=== PATIENT | female | born 2000 | race Two or more races ===

== ENCOUNTER 2020-07-18 12:03 | Emergency (ER) | payer OTHER ==
[~2020-07-18] VITALS: Ht 154.9 cm; Wt 70.0 kg
--- NOTE | 2020-07-18 12:23 | NUR ---
THIS IS A 19 YO F BIB EMS FROM HER SUPERVISORS OFFICE AT [facility] W/ C/O SI. PT REPORTS SIX1 MONTH BUT HAS BEEN TAKING PRECAUTIONS TO PREVENT SA. PT STATES SHE HAD A SA IN NOVEMBER 2019 IN WHICH SHE TOOK 15 TYLENOL. PT REPORTS REMOVING PILLS AND THINGS FROM HER ROOM FOR HER OWN SAFETY. PTS CURENT PLAN IS PILLS OR JUMPING OFF A BUILDING. PT STATES THAT SHE HAS THESE THOUGHTS BUT DOES NOT WANT TO ACT ON THEM AND IS HERE SEEKING HELP. PT DENIES TAKING ANY MEDS TODAY. NO HX OF HOME MEDS OR PREVIOUS DX. PT STATES THAT SHE HAS BEEM DRINKING MORE IN THE PAST WEEK, LAST DRINK LAST NIGHT. PT AMBULATED TO THE W/ A STEADY GAIT AND PROVIDED URINE SAMPLE. PT BELONGINGS REMOVED AND PLACED IN SAFETY LOCKER. SITTER OUTSIDE ROOM FOR SAFETY. PT RESTING ON GURNEY, RESP EVEN AND UNLABORED, NADN.
[2020-07-18 12:32] LABS: BASOPHILS # (AUTO) 0.03 x10^3/uL (0-0.3); BASOPHILS % (AUTO) 0 % (0-1); EOSINOPHILS # (AUTO) 0.17 x10^3/uL (0-0.8); EOSINOPHILS % (AUTO) 2 % (1-7); LYMPHOCYTES # (AUTO) 2.62 x10^3/uL (1-6.1); LYMPHOCYTES % (AUTO) 31 % (22-44); MD NO; MEAN CORPUSCULAR HEMOGLOBIN 30.8 pg (27.0-34.8); MEAN PLATELET VOLUME 8.4 fL (7.4-10.4); MONOCYTES # (AUTO) 0.54 x10^3/uL (0-1.4); MONOCYTES % (AUTO) 6 % (2-9); NEUTROPHILS # (AUTO) 5.22 x10^3/uL (1.8-8.0); NEUTROPHILS % (AUTO) 61 % (42-75); PLATELET COUNT 365 x10^3/uL (130-400); RED BLOOD COUNT 4.35 x10^6/uL (3.82-5.3); RED CELL DISTRIBUTION WIDTH 12.9 % (9.6-15.2)
[2020-07-18 12:41] LABS: ALBUMIN 3.9 g/dL (3.4-5.0); ANION GAP 5 mmol/L (5-15); CALCIUM 8.8 mg/dL (8.5-10.1); CHLORIDE 116 mmol/L (98-107)
[2020-07-18 12:42] LABS: AMPHETAMINE SCREEN, URINE Negative (Negative); BARBITURATE SCREEN, URINE Negative (Negative); BENZODIAZEPINE SCREEN, URINE Negative (Negative); CANNABINOID SCREEN, URINE Negative (Negative); COCAINE SCREEN, URINE Negative (Negative); METHADONE SCREEN, URINE Negative (Negative); OPIATE SCREEN, URINE Negative (Negative)
[2020-07-18 12:51] LABS: SALICYLATE LEVEL < 1.7 mg/dL (2.8-20.0)
--- NOTE | 2020-07-18 13:36 | NUR ---
Note kobi in EDM - 07/18/20 at 1356 by KAT THU SAMANIEGO NOTE: PT HAS PROVIDED UPDATED INSURANCE INFO, PT'S INSURANCE CARDS GIVEN TO REGISTRATION. PACKET TO REQUEST FOR TRANSFER TO PSYCH FACILITY WILL BE SENT TO LOCAL PSYCH FACILITIES WHEN INSURANCE UPDATED IN EMR.
--- NOTE | 2020-07-18 13:38 | NUR ---
PT PROVIDED W/ SAFETY DIET TRAY. PT RESTING ON [facility] W/ SITTER OUTSIDE ROOM AND GARAGE DOORS DOWNX2 FOR SAFETY. RESP EVEN AND UNLABORED, WILLIAM.
--- NOTE | 2020-07-18 13:56 | NUR ---
TP RN NOTE: PREVIOUS NOTE UNDONE, CHARTED ON WRONG PT.
--- NOTE | 2020-07-18 15:01 | NUR ---
TP RN NOTE: TRANSFER REQUEST PACKET SENT TO [facility], [facility], [facility], [facility] AND [facility]. CONFIRMATION OF RECEIPT RECEIVED.
--- NOTE | 2020-07-18 15:15 | NUR ---
PT ATTEMPTING TO CALL FAMILY MEMBER TO GET INSURANCE INFORMATION.
--- NOTE | 2020-07-18 15:17 | NUR ---
TP RN NOTE: PT STATES SHE HAS [employer] INSURANCE, DID NOT BRING CARDS TO ED. PT INSTRUCTED TO CALL FAMILY TO PROVIDE INSURANCE DETAILS OUR REGISTRATION IS UNABLE TO LOOK UP PT'S POLICY NUMBER AND DETAILS. [facility] HAS ACCEPTED PT ON SELF PAY BASIS, STATE ESTIMATED COST WILL BE $800 PER DAY. PT HAS SPOKEN TO HER FATHER WHO STATES HE DOES NOT HAVE A POLICY NUMBER BUT USES HIS NAME AND SOCIAL SECURITY NUMBER WHEN AT MEDICAL APPOINTMENTS. REGISTRATION STAFF NOTIFIED. PER REGISTRATION, THEY CAN ENTER THIS IN THE SYSTEM BUT INSURANCE CANNOT BE CONFIRMED UNTIL TOMORROW THIS CARRIER IS NOT OPEN ON WEEKENDS. PT NOTIFIED OF COST OF [facility], STATES SHE CANNOT PAY THIS AMOUNT AND WISHES TO STAY IN ED UNTIL LOWER COST OPTION IS FOUND, OR HER INSURANCE IS CONFIRMED. RECEIVING ROOM CLERK NOTIFIED.
[2020-07-18] MEDS ORDERED: TRAZODONE 50MG TABLET PO PRN (16:30)
[2020-07-18] MEDS ORDERED: HYDROXYZINE PAMOATE 50MG CAP PO PRN (16:30)
--- NOTE | 2020-07-18 16:57 | NUR ---
Pt denied by rebekah at this time.
--- NOTE | 2020-07-18 17:02 | NUR ---
REPORT RECIEVED FROM IVÁN SAMANIEGO. PT MOVED TO ROOM 1 WITHOUT INCIDENT. ROOM SECURE, SITTER IN HALLWAY
--- NOTE | 2020-07-18 17:10 | NUR ---
[facility] refused.
--- NOTE | 2020-07-18 19:17 | NUR ---
PT UP TO USE PHONE. AMBULATES WITH A STEADY GAIT. DINNER TRAY PROVIDED. ROOM SECURE AND SITTER IN HALLWAY
[2020-07-18] MEDS ORDERED: TRAZODONE 50MG TABLET ONE (19:58)
--- NOTE | 2020-07-18 20:19 | NUR ---
PT PLACED ON HOSPITAL BED.
--- NOTE | 2020-07-18 20:50 | NUR ---
Pt is only NNAMHS at this time until her insurance is verified on sunday.
--- NOTE | 2020-07-18 21:07 | NUR ---
SPOKE WITH MOTHER ON THE PHONE. JACOBO WAS INQUIRING ON IF AT ALL POSSIBLE TO RELEASE DAUGHTER TO HER TO TAKE BACK TO [facility] WHERE INSURANCE AND RESOURSES ARE MORE READILY AVAILABLE TO PT. MOTHER WAS ADVISED TO CALL BACK TOMORROW. THROUGHPUT MADE AWARE.
--- NOTE | 2020-07-19 00:39 | NUR ---
PT RESTING IN BED WITH PT ROOM SI SECURE, SITTER AT PT DOOR. PT DENIED ANY WANTS OR NEEDS. RN WILL CONTINUE TO MONITOR PT
--- NOTE | 2020-07-19 01:26 | NUR ---
PT RESTING IN BED WITH PT ROOM SI SECURE, SITTER AT PT DOOR. PT DENIED ANY WANTS OR NEEDS. RN WILL CONTINUE TO MONITOR PT
--- NOTE | 2020-07-19 04:25 | NUR ---
PT RESTING IN BED WITH PT ROOM SI SECURE, SITTER AT PT DOOR. PT DENIED ANY WANTS OR NEEDS. RN WILL CONTINUE TO MONITOR PT
--- NOTE | 2020-07-19 06:38 | NUR ---
PT RESTING IN BED WITH PT ROOM SI SECURE, SITTER AT PT DOOR. PT DENIED ANY WANTS OR NEEDS. RN WILL CONTINUE TO MONITOR PT
--- NOTE | 2020-07-19 07:09 | NUR ---
REPORT RECEIVED FROM JESUS MANUEL SAMANIEGO.
--- NOTE | 2020-07-19 07:16 | NUR ---
PT'S MOTHER'S NUMBER [phone]
--- NOTE | 2020-07-19 08:18 | NUR ---
DIET TRAY PROVIDED AT THIS TIME.
--- NOTE | 2020-07-19 09:00 | NUR ---
PT SLEEPING IN HOSPITAL BED. RESPS EVEN AND UNLABORED. SITTER MONITORING FROM HALLWAY FOR SAFETY. ROOM REMAINS SECURE.
[2020-07-19 10:13] VITALS: BP 99/62
--- NOTE | 2020-07-19 10:34 | NUR ---
pt resting in hospital bed. pt's aox4. resps even and unlabored. sitter monitoring from hallway for safety. room remains secure.
--- NOTE | 2020-07-19 10:49 | NUR ---
Yudy from [facility] accepts patient. Accepting doctor Dr. Carvalho. [facility] asks that patient can arrive there after 12:30.
--- NOTE | 2020-07-19 11:33 | NUR ---
pt using hospital phone at this time. sitter watching pt.
--- NOTE | 2020-07-19 11:38 | NUR ---
diet tray ordered at this time.
== END 2020-07-19 12:44 ==
LOC: ED 12:20
DX: R45.851 Suicidal ideations (principal); R00.0 Tachycardia, unspecified; F32.9 Major depressive disorder, single episode, unspecified
CPT/HCPCS: 36415; 80048; 80307; 82040; 84703; 85025; 99285